=== PATIENT | female | born 1990 | race African-American/Black ===

== ENCOUNTER 2021-02-19 14:09 | Outpatient (CLI) | payer OTHER, SELFPAY ==
--- NOTE | ~2021-02-19 | US_ITS ---
EXAMINATION: US OB <= 14 weeks fetus EXAM DATE: 02/19/2021 14:43 INDICATION: Encounter for supervision of normal , dating. 1st trimester. TECHNIQUE: Pelvic obstetrical transabdominal sonogram was performed by a technologist. There are mu ltiple grayscale and Doppler images available for interpretation. There are no earlier studies of th is gestation for comparison. FINDINGS: Uterus measures 10.0 x 4.3 x 5.5 cm. There is intrauterine gestation sac. pole with heart rate confirmed at 124 beats per minute. The 9 mm crown-rump length corresponds to estimated g estational age by ultrasound of 7 weeks 0 days, estimated date of confinement 10/08/2021. Yolk sac i s identified. There is small heterogeneous hypoechoic region and subchorionic location measuring 1.0 x 0.8 x 1.8 cm mm, could be a small subchorionic hemorrhage. The ovaries are normal, right likely containing the c orpus luteal cyst. IMPRESSION: 1. Live intrauterine gestation, age by ultrasound 7 weeks 0 days with KANDI 10/08. 2. Possible small subchorionic hematoma. Reviewed, dictated and finalized at location G. IMPRESSION: 1. Live intrauterine gestation, age by ultrasound 7 weeks 0 days with KANDI 09/28 1. 2. Possible small subchorionic hematoma.
== END 2021-02-19 14:10 | disposition home or self-care (01) ==
PROVIDERS: PCP Family Medicine; Visit Provider Obstetrics & Gynecology
DX: Z34.90 Encounter for supervision of normal pregnancy, unspecified, unspecified trimester (principal); Z3A.00 Weeks of gestation of pregnancy not specified
CPT/HCPCS: 76801

== ENCOUNTER 2021-02-26 07:54 | Emergency (ER) | payer OTHER, SELFPAY ==
[2021-02-26 07:59] VITALS: BP 132/79; PULSE 67; RESP 19; TEMP 36.5; O2SAT 100
--- NOTE | 2021-02-26 08:11 | ED.GENADULT ---
HPI - General Adult General Chief complaint: Nausea/Vomiting/Diarrhea Stated complaint: N/V, 9 weeks Time Seen by Provider: 02/26/21 08:03 Source: RN notes reviewed History of Present Illness HPI narrative: Patient presents to emergency department from home for nausea vomiting. Patient states that symptoms began 2 days ago with numerous episodes of nausea vomiting unable to keep anything down patient states she is approximately [address] Reid. States she has a history of hyperemesis gravidarum with her 2 previous pregnancies states she tried taking Reglan at home with minimal relief that she is unable to keep it down she denies any fevers or chills chest pain shortness of breath. Denies having diarrhea. Does note upper abdominal cramping. States she has had an ultrasound in the office that shows a live IUP denies having any vaginal bleeding Related Data Home Medications Medication Instructions Recorded Confirmed No Home Medications 02/26/21 Allergies Allergy/AdvReac Type Severity Reaction Status Date / Time No Known Allergies Allergy Verified 02/26/21 08:07 Review of Systems Review of Systems: Narrative: Gen.: Denies fevers or chills ENT: Denies congestion Respiratory: Denies shortness of breath or cough CV: Denies chest pain or palpitations GI: See HPI reports Musculoskeletal: Denies back pain or muscle pain Neuro: Denies numbness, tingling, weakness or focal weakness Skin: Denies rash Except as documented, all other systems reviewed and negative [facility] Past Medical History Medical History (Updated 02/26/21 @ 10:39 by Marlon Barnes DO) Hyperemesis gravidarum Social History Social History (Updated 02/26/21 @ 08:12 by Marlon Barnes DO) Smoking status: Never smoker Gender identity (if verbalized by the patient): Female Exam Narrative: Exam Narrative: APPEARANCE: No acute distress, nontoxic, resting in bed EYES: EOMI HEENT: Normocephalic, atraumatic, OMM RESPIRATORY: No respiratory distress Clear to auscultation bilaterally with no rhonchi wheezing or rales. CARDIOVASCULAR: Regular rate and rhythm without murmurs rubs or gallops. ABDOMINAL: Soft, nontender, nondistended, no rebound or guarding MUSCULOSKELETAl: Moves all extremities. No clubbing, cyanosis or edema. NEURO: Awake and alert. Following commands, speech normal, no focal deficits SKIN:: Warm, dry. No rashes lesions or abrasions PSYCHIATRIC: Normal affect/mood, Course Course Emergency Course: Patient given 2 L of fluid in the ED states she is feeling much better able to eat and drink in ED with no emesis states she has Reglan at home Discussed with patient results of workup and diagnosis. Discussed need for follow-up with primary care, proper use of medication, and reasons to return to the emergency department. Patient understands and agrees to current treatment plan Vital Signs Vital signs: Vital Signs Temperature 97.7 F 02/26/21 07:59 Pulse Rate 67 02/26/21 07:59 Respiratory Rate 19 02/26/21 07:59 Blood Pressure 132/79 02/26/21 07:59 Pulse Oximetry 100 02/26/21 07:59 Temperature 97.7 F 02/26/21 07:59 Pulse Rate 64 02/26/21 09:20 Respiratory Rate 16 02/26/21 09:20 Blood Pressure 119/60 02/26/21 09:20 Pulse Oximetry 100 02/26/21 09:20 Medical Decision Making Vital Signs Vital Signs: Vital Signs Temperature 97.7 F 02/26/21 07:59 Pulse Rate 67 02/26/21 07:59 Respiratory Rate 19 02/26/21 07:59 Blood Pressure 132/79 02/26/21 07:59 Pulse Oximetry 100 02/26/21 07:59 Temperature 97.7 F 02/26/21 07:59 Pulse Rate 64 02/26/21 09:20 Respiratory Rate 16 02/26/21 09:20 Blood Pressure 119/60 02/26/21 09:20 Pulse Oximetry 100 02/26/21 09:20 Lab Data Result diagrams: 02/26/21 08:09 02/26/21 08:09 Labs: Lab Results 02/26/21 02/26/21 02/26/21 Range/Units 08:09 08:09 08:17
[2021-02-26 08:16] LABS: Basophils Percent Auto 0.2 % (0.2-1.2); Eosinophils Percent Auto 0.2 % (0-4.4); Hematocrit 37.7 % (37.0-47.0); Hemoglobin 12.1 g/dL (12.0-15.0); Immature Granulocyte Absolute 0.03 K/mm3 (0.00-0.031); Immature Granulocyte Percent A 0.5 % (0-0.5); Lymphocytes Absolute Auto 1.01 K/mm3 (0.9-3.2); Lymphocytes Percent Auto 18.2 % (18.3-44.2); Mean Corpuscular HGB Conc 32.1 g/dl (32-36); Mean Corpuscular Hemoglobin 28.8 pg (26-34); Mean Corpuscular Volume 89.8 fl (80-100); Monocytes Absolute Auto 0.4 K/mm3 (0.1-0.6); Monocytes Percent Auto 7.8 % (2.6-8.5); Neutrophils Absolute Auto 4.1 K/mm3 (1.3-6.7); Neutrophils Percent Auto 73.1 % (45.5-73.1); Platelet Count Result 225 k/mm3 (150-375); White Blood Count 5.5 K/mm3 (4.5-10.0)
[2021-02-26] MEDS: SODIUM CHLORIDE 0.9% IV 1,000 ML 999 ML IV CONT (08:20)
[2021-02-26] MEDS: FAMOTIDINE 20 MG/2 ML VIAL IV PUSH (08:21)
[2021-02-26] MEDS: PROMETHAZINE HCL 25 MG/ML AMPUL 12.5 MG IV PUSH (08:21)
[2021-02-26 08:31] LABS: Add Urine Microscopic? YES; Appearance Urine Cloudy (Clear); Bilirubin Urine Negative (Negative); Blood Urine Negative (Negative); Color Urine Amber (Yellow); Glucose Urine UA Negative (Negative); Ketones Urine 2+ mg/dL (Negative); Leukocyte Esterase Ur Negative LEU/UL (Negative); Mucus Urine Heavy /lpf; Nitrate Urine Negative (Negative); Protein Urine 2+ mg/dL (Negative); RBC Urine 0-2 /hpf (0-2); Squamous Epithelial Cell Urine Many /hpf (Few); WBC Urine 0-3 /hpf
[2021-02-26 08:33] LABS: Alanine Aminotransferase 9 U/L (4-35); Albumin Level 4.7 g/dL (3.5-5.1); Alkaline Phosphatase 65 U/L (38-126); Anion Gap 9 mmol/L (8-16); Aspartate Amino Transferase 16 U/L (14-36); Bilirubin,Total 0.6 mg/dL (0.2-1.3); Blood Urea Nitrogen 9 mg/dL (7-17); Calcium 9.4 mg/dL (8.4-10.2); Carbon Dioxide 25 mmol/L (22-30); Chloride 104 mmol/L (98-107); Estimated CRCL calculation 106 ml/min; Estimated Glomerular Filt Rate > 60; Glucose 94 mg/dL (65-105); Lipase 76 U/L (23-300); Potassium 3.3 mmol/L (3.4-5.0); Sodium 138 mmol/L (137-145)
[2021-02-26 09:20] VITALS: BP 119/60; PULSE 64; RESP 16; O2SAT 100
[2021-02-26] MEDS: LACTATED RINGERS 1,000 ML 999 ML IV CONT (09:20)
--- NOTE | 2021-02-26 10:14 | PC.NURSE ---
Gave pt crackers and water for PO challenge. Pt was able to keep it down without vomiting. Pt states she feels better at this time.
[2021-02-26] MEDS: POTASSIUM CHLORIDE 20 MEQ PACKET (FOR LIQUID) PO (10:47)
[2021-02-26 10:52] VITALS: BP 116/66; PULSE 66; RESP 16; O2SAT 100
== END 2021-02-26 10:55 | disposition home or self-care (01) ==
PROVIDERS: Emergency Provider Emergency Medicine; PCP Family Medicine
DX: O21.0 Mild hyperemesis gravidarum (principal); Z3A.09 9 weeks gestation of pregnancy
CPT/HCPCS: 36415; 80053; 81001; 81025; 83690; 85025; 96361; 96374; 96375; 99284; A9270; J2550; J7030; J7120

== ENCOUNTER 2021-03-22 18:23 | Observation (INO) | payer OTHER, SELFPAY ==
--- NOTE | ~2021-03-22 | XR_ITS ---
EXAMINATION: XR chest PICC line EXAM DATE: 03/24/2021 14:00 INDICATION: PICC placement shield abdomen. TECHNIQUE: Portable AP frontal chest x-ray was obtained. There is no prior study for comparison. FINDINGS: There is a left-sided PICC line with tip projecting just above the cavoatrial junction. The lungs are clear. There are no pleural effusions. The cardiomediastinal silhouette is within normal limits. There is no pneumothorax suspected. The bones and soft tissues are unremarkable. IMPRESSION: 1. No acute cardiopulmonary findings. 2. PICC line in position. Reviewed, dictated and finalized at location A.
[2021-03-22 18:35] VITALS: BP 118/73; PULSE 72; TEMP 36.8
[2021-03-22 18:58] VITALS: BMI 28.9
[2021-03-22] MEDS: METOCLOPRAMIDE HCL INJ 10 MG/2 ML VIAL IV PUSH (19:29)
[2021-03-22] MEDS: DEXTROSE 5%/0.9% SOD CHL 1,000 ML 999 ML IV CONT (19:31)
--- NOTE | 2021-03-22 19:33 | OBADM ---
This patient, Drake Verma, admitted to the OB room OB Post 116 for observation. Patient/family oriented to hospital policies and general routines including ID bracelet, bed and alarms, visiting hours, pain management, procedures, bathroom and other care routines, personal items, smoking policy, room service/diet, and visiting hours. Patient/Family are encouraged to report perceived risks to care and to ask questions if they do not understand what they are told or what they should do.
[2021-03-22] MEDS: ONDANSETRON INJ 4 MG/2 ML VIAL IV PUSH (19:43)
[2021-03-22] MEDS: FAMOTIDINE 20 MG/2 ML VIAL IV PUSH (19:59)
[2021-03-22] MEDS: DEXTROSE 5%/0.9% SOD CHL 1,000 ML 150 ML IV CONT ×2 (21:22→23:43)
[2021-03-22 23:46] VITALS: BP 105/48; PULSE 79
[2021-03-22 23:47] VITALS: TEMP 36.7
[2021-03-23] VITALS (7 sets, daily range): BP systolic 108–121; BP diastolic 56–73; PULSE 63–69; RESP 18; TEMP 36.9–37.1
[2021-03-23] MEDS: ONDANSETRON INJ 4 MG/2 ML VIAL IV PUSH ×3 (07:10→18:30)
[2021-03-23] MEDS: METOCLOPRAMIDE HCL INJ 10 MG/2 ML VIAL IV PUSH ×3 (09:37→21:31)
--- NOTE | 2021-03-23 09:40 | PC.NURSE ---
Called Dr. Reid with pt status. Informed that pt denied nausea, so encouraged to eat crackers to see if she tolerates them. Pt got nauseated with small amount of crackers. Instructed to not eat any more. Orders received to begin setting up home health for PICC line for meds and hydration.
--- NOTE | 2021-03-23 09:50 | PC.NURSE ---
Called office to inform them of additional information needed for home health. Office will fax requested information to home health.
[2021-03-23] MEDS: DEXTROSE 5%/0.9% SOD CHL 1,000 ML 150 ML IV CONT ×3 (10:02→19:52)
[2021-03-23] MEDS: FAMOTIDINE 20 MG/2 ML VIAL IV PUSH ×2 (10:02→22:01)
--- NOTE | 2021-03-23 12:53 | PC.NURSE ---
FHT's 160's per doppler.
--- NOTE | 2021-03-23 14:05 | PC.NURSE ---
Called Dr. Reid. Informed that home [facility] is waiting on approval for meds and will contact us when it is approved.
--- NOTE | 2021-03-23 18:34 | PC.NURSE ---
1830- pt given popsicle and ice chips per her request. pt states that she is feeling the best she has felt in a while.
--- NOTE | 2021-03-23 19:33 | PM.IMHP ---
H&P: HPI History of Present Illness Date/Time: 03/23/21 19:33 Chief Complaint: hyperemesis gravidarum Narrative: 30 year old at 11wks gestation w/ hx of severe hyperemesis gravidarum presents for CASSIE with nausea and vomiting. Has tried Zofran, scopolamine patch, metoclopramide and rectal suppository without relief. Review of Systems Review of Systems: All systems reviewed & are unremarkable except as noted in HPI and below Constitutional: Constitutional: Reports anorexia, Reports lethargy, Reports poor appetite and Reports weight loss Eyes: Eyes: Reports no additional eye complaints ENT: Reports system reviewed and no additional complaints, except as documented Cardiovascular: Cardiovascular: Reports no additional cardiovascular complaints Respiratory: Respiratory: Reports no additional respiratory complaints Gastrointestinal: Gastrointestinal: Reports abdominal pain, Reports dyspepsia, Reports heartburn, Reports nausea and Reports vomiting Genitourinary: Genitourinary: Reports no additional female genitourinary complaints Musculoskeletal: Musculoskeletal: Reports no additional musculoskeletal complaints Integumentary/Breasts: Skin/Breast: Reports system reviewed and no additional complaints, except as docu Neurologic: Reports system reviewed and no additional complaints, except as documented Psychiatric: Psychiatric: Reports no additional psychiatric complaints PMFSH Past Medical History Medical History (Updated 03/24/21 @ 19:39 by Carrillo Reid MD) Depressive disorder [place] (generalized anxiety disorder) Hyperemesis gravidarum MS (multiple sclerosis) Recurrent UTI Subchorionic hematoma in first trimester Supervision of normal IUP (intrauterine ) in multigravida Surgical History Surgical History (Updated 03/24/21 @ 19:41 by Carrillo Reid MD) Delivery by section 02/13/20091407 lbs.14 oz.MCesareanFull Term [facility] Delivery by section 08/29/2018137.35 lbs.8 oz.M[facility] Family History Family History (Updated 03/24/21 @ 19:42 by Carrillo Reid MD) Other Cancer Diabetes mellitus Heart disease Hypertension Social History Social History (Updated 03/24/21 @ 19:42 by Carrillo Reid MD) Smoking status: Never smoker Alcohol intake: never Substance use type: marijuana Living arrangements: with family Occupation/Education: occupation 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 Gender identity (if verbalized by the patient): Female Sexual Orientation (if Verbalized by the Patient): Straight or Heterosexual Spiritual care concerns: No Agree to blood products: Yes Meds Home Medications and Allergies Home Medications Medication Instructions Recorded Confirmed Type metoclopramide HCl 10 mg PO Q6H 03/22/21 03/22/21 History ondansetron 4 mg PO Q4H 03/22/21 03/22/21 History scopolamine base 1 mg TRANSDERMAL Q3-4D 03/22/21 03/22/21 History Allergies Allergy/AdvReac Type Severity Reaction Status Date / Time No Known Allergies Allergy Verified 02/26/21 08:07 Vital Signs Vital Signs - 24 hr 03/24/21 03:34 03/24/21 03:35 03/24/21 07:27 Temperature 98.4 F 98.5 F Pulse Rate 83 83 Respiratory Rate 16 Blood Pressure 116/67 116/67 Pulse Oximetry 100 03/24/21 07:28 03/24/21 12:35 03/24/21 12:36 Temperature 98.0 F Pulse Rate 76 69 Respiratory Rate Blood Pressure 120/66 114/61 Pulse Oximetry 03/24/21 15:55 03/24/21 15:56 03/24/21 18:33 Temperature 98.1 F 98.5 F Pulse Rate 74 80 Respiratory Rate 18 Blood Pressure 118/65 123/65 Pulse Oximetry 99 03/24/21 18:34 Temperature Pulse Rate 80 Respiratory Rate Blood Pressure 123/65 Pulse Oximetry 98 Exam Const: General: cooperative, healthy appearing, comfortable, no acute distress, well developed, alert and awake Nutrit
--- NOTE | 2021-03-23 19:47 | WPDHPUPDATE1 ---
History and Physical Update Update Date/Time: 03/23/21 19:47 History and Physical has been reviewed, including an updated exam of the patient. There are NO changes in the patient's condition. Risks, benefits, and alternatives have been discussed and questions answered. Patient agrees to proceed with procedure. 30 year old at 11wks gestation w/ hx of severe hyperemesis gravidarum presents for CASSIE with nausea and vomiting. Has tried Zofran, scopolamine patch, metoclopramide and rectal supposory without relief.
[2021-03-24] VITALS (10 sets, daily range): BP systolic 114–123; BP diastolic 61–67; PULSE 69–83; RESP 16–18; TEMP 36.7–36.9; O2SAT 98–100
[2021-03-24] MEDS: ONDANSETRON INJ 4 MG/2 ML VIAL IV PUSH ×4 (00:31→18:30)
[2021-03-24] MEDS: DEXTROSE 5%/0.9% SOD CHL 1,000 ML 150 ML IV CONT ×3 (03:31→19:15)
[2021-03-24] MEDS: METOCLOPRAMIDE HCL INJ 10 MG/2 ML VIAL IV PUSH ×4 (03:31→21:30)
--- NOTE | 2021-03-24 03:40 | PC.NURSE ---
pt able to keep jello down. pt states that she feels better.
[2021-03-24] MEDS: FAMOTIDINE 20 MG/2 ML VIAL IV PUSH ×2 (09:31→22:04)
[2021-03-24] MEDS: LIDOCAINE HCL 1% PF INJ 5 ML VIAL INFILTRATE (13:25)
--- NOTE | 2021-03-24 15:05 | PC.NURSE ---
Discussed plan of care with home health.
--- NOTE | 2021-03-24 15:15 | PC.NURSE ---
Called Dr. Reid with pt status. Home health arranged with [facility]. Able to keep down a banana and PO fluids. Will come to see pt after office hours today.
--- NOTE | 2021-03-24 17:55 | PC.NURSE ---
Pt ate mashed potatoes without nausea or vomiting.
--- NOTE | 2021-03-24 19:45 | PM.OBTRLD ---
OB - Triage/Final Diagnosis Visit Information Date of evaluation: 03/24/21 Comments/Additional reasons for admission: I have assessed the risk for this patient, Drake Verma, and determined that she would benefit from observation care. Evaluation Vital signs: Vital Signs - 24 hr 03/24/21 03:34 03/24/21 03:35 03/24/21 07:27 Temperature 98.4 F 98.5 F Pulse Rate 83 83 Respiratory Rate 16 Blood Pressure 116/67 116/67 Pulse Oximetry 100 03/24/21 07:28 03/24/21 12:35 03/24/21 12:36 Temperature 98.0 F Pulse Rate 76 69 Respiratory Rate Blood Pressure 120/66 114/61 Pulse Oximetry 03/24/21 15:55 03/24/21 15:56 03/24/21 18:33 Temperature 98.1 F 98.5 F Pulse Rate 74 80 Respiratory Rate 18 Blood Pressure 118/65 123/65 Pulse Oximetry 99 03/24/21 18:34 Temperature Pulse Rate 80 Respiratory Rate Blood Pressure 123/65 Pulse Oximetry 98 Final Diagnosis (1) Hyperemesis gravidarum: Code(s): O21.0 - Mild hyperemesis gravidarum Status: Acute (2) MS (multiple sclerosis): Code(s): G35 - Multiple sclerosis Status: Acute (3) Subchorionic hematoma in first trimester: Code(s): O41.8X10 - Other specified disorders of amniotic fluid and membranes, first trimester, not applicable or unspecified; O46.8X1 - Other antepartum hemorrhage, first trimester Status: Acute
--- NOTE | 2021-03-24 19:48 | PM.OBPNVD ---
OB - PN: Subj Subjective Date/time seen: 03/24/21 19:48 30 year old at 11wks gestation w/ hx of severe hyperemesis gravidarum presents for CASSIE with nausea and vomiting. Has tried Zofran, scopolamine patch, metoclopramide and rectal suppository without relief. now with PICC LINE AND HOME HEALTH SETUP OB - PN: Obj Data Imaging Radiologist's impression: Impressions Chest X-Ray 03/24/21 14:08 IMPRESSION: 1. No acute cardiopulmonary findings. 2. PICC line in position. OB - PN A/P Assessment and Plan (1) Hyperemesis gravidarum: Code(s): O21.0 - Mild hyperemesis gravidarum Status: Acute (2) MS (multiple sclerosis): Code(s): G35 - Multiple sclerosis Status: Acute (3) Supervision of normal IUP (intrauterine ) in multigravida: Code(s): Z34.80 - Encounter for supervision of other normal , unspecified trimester Status: Acute Time Spent With Patient Time: Total time spent is greater than 50% in coordination of care (as documented) at patient's floor/unit and/or counseling patient: Review of Systems Review of Systems: All systems reviewed & are unremarkable except as noted in HPI and below Constitutional: Constitutional: Reports no additional constitutional complaints Eyes: Eyes: Reports no additional eye complaints ENT: Reports system reviewed and no additional complaints, except as documented Cardiovascular: Cardiovascular: Reports no additional cardiovascular complaints Respiratory: Respiratory: Reports no additional respiratory complaints Gastrointestinal: Gastrointestinal: Reports no additional gastrointestinal complaints Genitourinary: Genitourinary: Reports no additional female genitourinary complaints Musculoskeletal: Musculoskeletal: Reports no additional musculoskeletal complaints Integumentary/Breasts: Skin/Breast: Reports system reviewed and no additional complaints, except as docu Neurologic: Reports system reviewed and no additional complaints, except as documented Psychiatric: Psychiatric: Reports no additional psychiatric complaints Endocrine: Endocrine: Reports no additional endocrine complaints Hematologic/Lymphatic: Hematologic/Lymphatic: Reports no additional hematologic/lymphatic complaints Allergic/Immunologic: Allergic/Immunologic: Reports no additional allergic/immunologic complaints Exam Const: General: cooperative, healthy appearing, comfortable, no acute distress, well developed, alert, awake and Physically active Nutritional Appearance: average body habitus Orientation/consciousness: patient oriented x3 Limitations: no limitations HENMT: Head: normal to inspection Eyes: General: appearance normal, both eyes and all related structures Neck: Neck: normal visual inspection and full ROM Chest: Chest palpation & inspection: normal inspection of the chest Resp: Effort & Inspection: normal respiratory effort Cardio: Rate: regular rate Rhythm: regular rhythm GI: Inspection: normal to inspection : External Female Exam: normal external appearance Back/Spine/Pelvis: Back: no CVA tenderness Skin: General skin exam: normal color Neuro: General: patient oriented x3, gait normal, tone normal and moves all extremities Extrem: General: normal to inspection and full ROM Psych: Appearance: grossly normal Mental Status: mental status grossly normal
--- NOTE | 2021-03-24 20:04 | PC.NURSE ---
1956- Dr. Reid in L&D unit. 1957- Dr. Reid at bedside.
[2021-03-24] MEDS: CENTRAL LINE FLUSH 10 ML IV PUSH (21:43)
[2021-03-25] MEDS: ONDANSETRON INJ 4 MG/2 ML VIAL IV PUSH ×2 (00:30→06:36)
[2021-03-25] MEDS: DEXTROSE 5%/0.9% SOD CHL 1,000 ML 150 ML IV CONT (01:55)
[2021-03-25] MEDS: METOCLOPRAMIDE HCL INJ 10 MG/2 ML VIAL IV PUSH (04:12)
[2021-03-25] MEDS: CENTRAL LINE FLUSH 10 ML IV PUSH (06:39)
[2021-03-25 06:44] VITALS: BP 130/82; PULSE 148; PULSE 72; RESP 16; TEMP 36.7; O2SAT 100
== END 2021-03-25 07:05 | disposition home health service (06) ==
PROVIDERS: Admitting Provider Obstetrics & Gynecology; PCP Family Medicine; Visit Provider Obstetrics & Gynecology
DX: O21.0 Mild hyperemesis gravidarum (principal); G35 Multiple sclerosis; Z3A.11 11 weeks gestation of pregnancy
CPT/HCPCS: 36569; 96361; 96374; 96375; 96376; C1751; G0378; G0379; J2405; J2765; J7042

== ENCOUNTER 2021-04-01 12:53 | Emergency (ER) | payer OTHER, SELFPAY ==
--- NOTE | ~2021-04-01 | XR_ITS ---
EXAMINATION: XR chest 1V portable EXAM DATE: 04/01/2021 13:28 INDICATION: Confirm existing PICC line placement . TECHNIQUE: Portable AP frontal chest x-ray was obtained. There is no prior study for comparison. FINDINGS: There is a left-sided PICC line with tip projecting over the cavoatrial junction. The lungs are clear. There are no pleural effusions. The cardiomediastinal silhouette is within normal limit s. There is no pneumothorax suspected. The bones and soft tissues are unremarkable. IMPRESSION: PICC line in position. No acute cardiopulmonary findings. Reviewed, dictated and finalized at location B.
[2021-04-01 13:06] VITALS: BP 118/66; PULSE 78; RESP 18; TEMP 36.2; O2SAT 100
--- NOTE | 2021-04-01 13:06 | ED.GENADULT ---
HPI - General Adult General Chief complaint: Abdominal Pain Stated complaint: multiple complaints Time Seen by Provider: 04/01/21 12:56 History of Present Illness HPI narrative: 30 yo female at 13 weeks gestation w/ h/o hyperemesis presents to the Ed for abdominal pain. She reports that she has not had a bowel movement in 2 weeks. She now has diffuse cramping abdominal pain. She also reports that she has nausea and vomiting, but this is no worse than baseline. She has a port and she gets IV fluids and antiemetics at home. No vaginal bleeding discharge, dysuria, hematuria. Related Data Home Medications Medication Instructions Recorded Confirmed metoclopramide HCl 10 mg PO Q6H 03/22/21 03/22/21 ondansetron 4 mg PO Q4H 03/22/21 03/22/21 scopolamine base 1 mg TRANSDERMAL Q3-4D 03/22/21 03/22/21 Allergies Allergy/AdvReac Type Severity Reaction Status Date / Time No Known Allergies Allergy Verified 04/01/21 13:12 Review of Systems Review of Systems: All systems reviewed & are unremarkable except as noted in HPI and below Constitutional: Constitutional: Denies chills and Denies fever(s) Cardiovascular: Cardiovascular: Denies chest pain Respiratory: Respiratory: Denies dyspnea Gastrointestinal: Gastrointestinal: Reports as per HPI Genitourinary: Genitourinary: Reports as per HPI Musculoskeletal: Musculoskeletal: Reports no additional musculoskeletal complaints Neurologic: Reports system reviewed and no additional complaints, except as documented [facility] Past Medical History Medical History Depressive disorder [place] (generalized anxiety disorder) Hyperemesis gravidarum MS (multiple sclerosis) Recurrent UTI Subchorionic hematoma in first trimester Supervision of normal IUP (intrauterine ) in multigravida Surgical History Surgical History Delivery by section 02/13/20091407 lbs.14 oz.MCesareanFull Term [facility] Delivery by section 08/29/2018137.35 lbs.8 oz.MRepeat CesareanFull Term [facility] Family History Family History Other Cancer Diabetes mellitus Heart disease Hypertension Social History Social History Smoking status: Never smoker Alcohol intake: never Substance use type: marijuana 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 Gender identity (if verbalized by the patient): Female Spiritual care concerns: No Agree to blood products: Yes Exam Const: General: healthy appearing, no acute distress and alert Orientation/consciousness: patient oriented x3 HENMT: Head: normal to inspection Neck: Neck: normal visual inspection Resp: Effort & Inspection: normal respiratory effort Auscultation: clear to auscultation bilaterally, no rales, no rhonchi and no wheezes Cardio: Jugular venous distension: no JVD Rate: regular rate Rhythm: regular rhythm Heart sounds: no murmurs GI: GI Palp: Yes Soft to palpation and No Tenderness to palpation present (GI) Auscultation: normal bowel sounds Other: Gravid Skin: General skin exam: normal color Neuro: General: patient oriented x3 and moves all extremities Speech: normal speech Extrem: General: no edema Psych: Appearance: well kempt Affect: normal affect Course Vital Signs Vital signs: Vital Signs Temperature 36.2 C L 04/01/21 13:06 Pulse Rate 78 04/01/21 13:06 Respiratory Rate 18 04/01/21 13:06 Blood Pressure 118/66 04/01/21 13:06 Pulse Oximetry 100 04/01/21 13:06 Temperature 36.2 C L 04/01/21 13:06 Pulse Rate 78 04/01/21 13:06 Respiratory Rate 18 04/01/21 13:06 Blood Pressure 118/66 04/01/21 13:06 Pulse Oximetry 100 04/01/21 13:06 Medical Decision
[2021-04-01 13:33] LABS: Add Urine Microscopic? YES; Appearance Urine Cloudy (Clear); Bacteria Urine Trace /hpf; Bilirubin Urine Negative (Negative); Blood Urine 1+ (Negative); Color Urine Yellow (Yellow); Glucose Urine UA Negative (Negative); Ketones Urine Negative (Negative); Leukocyte Esterase Ur 2+ LEU/UL (Negative); Mucus Urine Rare /lpf; Nitrate Urine Negative (Negative); Protein Urine 2+ mg/dL (Negative); Specific Grav Ur 1.014 (1.001-1.035); Squamous Epithelial Cell Urine Occasional /hpf (Few); WBC Clumps Urine Present /HPF; WBC Urine >75 /hpf
[2021-04-01] MEDS: MAGNESIUM CITRATE 300 ML BTL PO (13:52)
[2021-04-01 14:10] LABS: Basophils Percent Auto 0.1 % (0.2-1.2); Eosinophils Percent Auto 0.1 % (0-4.4); Hematocrit 31.8 % (37.0-47.0); Hemoglobin 10.6 g/dL (12.0-15.0); Immature Granulocyte Absolute 0.03 K/mm3 (0.00-0.031); Immature Granulocyte Percent A 0.4 % (0-0.5); Lymphocytes Absolute Auto 0.61 K/mm3 (0.9-3.2); Lymphocytes Percent Auto 7.4 % (18.3-44.2); Mean Corpuscular HGB Conc 33.3 g/dl (32-36); Mean Corpuscular Hemoglobin 28.6 pg (26-34); Mean Corpuscular Volume 85.9 fl (80-100); Mean Platelet Volume 12.3 fl (7.4-10.4); Monocytes Absolute Auto 0.5 K/mm3 (0.1-0.6); Monocytes Percent Auto 5.9 % (2.6-8.5); Neutrophils Absolute Auto 7.1 K/mm3 (1.3-6.7); Neutrophils Percent Auto 86.1 % (45.5-73.1); Platelet Count Result 156 k/mm3 (150-375); Red Cell Distribution Width 12.4 % (11.5-14.5); White Blood Count 8.2 K/mm3 (4.5-10.0)
[2021-04-01 14:24] LABS: Alanine Aminotransferase 10 U/L (4-35); Albumin Level 3.9 g/dL (3.5-5.1); Alkaline Phosphatase 64 U/L (38-126); Anion Gap 7 mmol/L (8-16); Aspartate Amino Transferase 18 U/L (14-36); Bilirubin,Total 0.7 mg/dL (0.2-1.3); Blood Urea Nitrogen 5 mg/dL (7-17); Calcium 9.8 mg/dL (8.4-10.2); Carbon Dioxide 21 mmol/L (22-30); Chloride 106 mmol/L (98-107); Estimated CRCL calculation 141 ml/min; Estimated Glomerular Filt Rate > 60; Glucose 91 mg/dL (65-105); Lipase 80 U/L (23-300); Sodium 134 mmol/L (137-145)
[2021-04-01 14:29] LABS: Potassium 3.5 mmol/L (3.4-5.0)
[2021-04-01] MEDS: ONDANSETRON INJ 4 MG/2 ML VIAL IV PUSH (14:30)
[2021-04-01] MEDS: NITROFURANTOIN MONOHYD MACROCR 100 MG CAP PO (14:39)
[2021-04-01] MEDS: FAMOTIDINE 20 MG TABLET (14:47)
[2021-04-01] MEDS: HEPARIN SOD FLUSH 500 UNITS/5 ML SYRINGE (15:25)
--- NOTE | 2021-04-01 15:25 | PC.NURSE ---
PICC line was flushed with Heparin by this RN
== END 2021-04-01 15:26 | disposition home or self-care (01) ==
PROVIDERS: Emergency Provider Emergency Medicine; PCP Family Medicine
DX: O21.0 Mild hyperemesis gravidarum (principal); O99.611 Diseases of the digestive system complicating pregnancy, first trimester; K59.00 Constipation, unspecified; O99.351 Diseases of the nervous system complicating pregnancy, first trimester; G35 Multiple sclerosis; Z3A.13 13 weeks gestation of pregnancy; Z87.440 Personal history of urinary (tract) infections
CPT/HCPCS: 36415; 71045; 80053; 81001; 81025; 83690; 85025; 87077; 87086; 87088; 87186; 96374; 96375; 99284; A9270; J2405

== ENCOUNTER 2021-04-14 12:23 | Outpatient (CLI) | payer OTHER, SELFPAY ==
--- NOTE | ~2021-04-14 | US_ITS ---
EXAMINATION: US OB <= 14 weeks fetus DATE: 04/14/2021 12:52 INDICATION: Routine care during second trimester TECHNIQUE: Real-time pelvic transabdominal and transvaginal ultrasound was performed. COMPARISON: 02/19/2021 FINDINGS: There is a single living fetus in transverse lie. The placenta is posterior. heart mo tion is identified measuring 150 beats per minute (bpm) by M-mode Doppler. The amniotic fluid index i s subjectively normal. The following biometric data were obtained: Biparietal diameter (BPD): 2.7 cm; head circumference (HC): 105 cm; abdominal circumference (AC): 9.5 cm; femur length (FL): 1.6 cm. These measurements are concordant. Estimated weight is 119 g +/- 17 g, which correlates with the 76th percentile when 10/08/2021 i s used as estimated date of delivery. As single measurements, these parameters are each equal to the following estimated gestational ages w ith ranges of +/- 2 standard deviations: BPD: 15 weeks 0 days +/- 1 weeks 1 days. HC: 15 weeks 0 days +/- 1 weeks 1 days. AC: 15 weeks 4 days +/- 1 weeks 5 days. FL: 15 weeks 0 days +/- 1 weeks 3 days. estimated gestational age based solely on measurements from this exam is 15 weeks 1 days +/- 1 weeks 0 days. IMPRESSION: 1. Live intrauterine with an estimated gestational age of 15 weeks and 1 day(s) (+/-) 7 day (s) and an estimated delivery date of 10/05/2021. 2. Estimated weight is 119 g +/- 17 g, which correlates with the 76th percentile when is used as estimated date of delivery. Reviewed, dictated and finalized at location A. IMPRESSION: 1. Live intrauterine with an estimated gestational age of 15 weeks an d 1 day(s) (+/-) 7 day(s) and an estimated delivery date of 10/05/2021. 2. Estimated weight is 119 g +/- 17 g, which correlates with the 76th per centile when 10/08/2021 is used as estimated date of delivery.
== END 2021-04-14 12:24 | disposition home or self-care (01) ==
PROVIDERS: PCP Family Medicine; Visit Provider Obstetrics & Gynecology
DX: Z34.92 Encounter for supervision of normal pregnancy, unspecified, second trimester (principal); Z3A.15 15 weeks gestation of pregnancy
CPT/HCPCS: 76801

== ENCOUNTER 2021-04-18 16:42 | Observation (INO) | payer OTHER, SELFPAY ==
--- NOTE | 2021-04-18 17:05 | PC.NURSE ---
Called Dr. Armenta with pt status. Informed of nausea and vomiting today. PICC line removed on Tuesday. Orders received.
[2021-04-18 17:28] VITALS: BMI 30.5
[2021-04-18] MEDS: DEXTROSE 5%/LACTATED RINGERS 1,000 ML 150 ML IV CONT (17:43)
[2021-04-18] MEDS: METOCLOPRAMIDE HCL INJ 10 MG/2 ML VIAL IV PUSH (17:44)
[2021-04-18 17:46] VITALS: TEMP 36.6
[2021-04-18 17:47] VITALS: BP 114/74; PULSE 80
[2021-04-18 18:15] LABS: Add Urine Microscopic? YES; Appearance Urine Cloudy (Clear); Bacteria Urine Trace /hpf; Bilirubin Urine Negative (Negative); Blood Urine Negative (Negative); Color Urine Amber (Yellow); Glucose Urine UA Negative (Negative); Ketones Urine 2+ mg/dL (Negative); Leukocyte Esterase Ur 2+ LEU/UL (NEGATIVE); Mucus Urine Moderate /lpf; Nitrate Urine Negative (Negative); Protein Urine 1+ mg/dL (Negative); RBC Urine 0-2 /hpf (0-2); Specific Grav Ur 1.027 (1.001-1.035); Squamous Epithelial Cell Urine Many /hpf (Few); Transitional Epi Cells Urine Rare /hpf (None Seen); WBC Urine 0-3 /hpf (0-3)
[2021-04-18 19:39] VITALS: BP 110/51; PULSE 59; RESP 18; TEMP 37.2
[2021-04-18] MEDS: ONDANSETRON INJ 4 MG/2 ML VIAL IV PUSH (20:41)
[2021-04-18] MEDS: FAMOTIDINE 20 MG/2 ML VIAL IV PUSH (20:41)
--- NOTE | 2021-04-22 08:23 | PM.OBTRLD ---
OB - Triage/Final Diagnosis Visit Information Reason for evaluation: threatened labor Comments/Additional reasons for admission: I have assessed the risk for this patient, Drake Verma, and determined that she would benefit from observation care. Evaluation Laboratory results: Laboratory Tests 04/18/21 18:00 Urine Color Jocelyn Urine Appearance Cloudy H Urine pH 6.0 Ur Specific [place] 1.027 Urine Protein 1+ H Urine Glucose (UA) Negative Urine Ketones 2+ H Ur Blood (Man) Negative Urine Nitrate Negative Urine Bilirubin Negative Urine Urobilinogen 4.0 H Ur Leukocyte Esterase 2+ H Urine RBC 0-2 Urine WBC 0-3 Ur Squamous Epith Cells Many H Ur Transition Epith Cell Rare Urine Bacteria Trace Urine Mucus Moderate H
== END 2021-04-18 21:47 | disposition home or self-care (01) ==
PROVIDERS: Admitting Provider Obstetrics & Gynecology; PCP Family Medicine; Visit Provider Obstetrics & Gynecology
DX: O47.03 False labor before 37 completed weeks of gestation, third trimester (principal); Z3A.15 15 weeks gestation of pregnancy
CPT/HCPCS: 81001; 87086; 87088; 96361; 96374; 96375; G0378; G0379; J2405; J2765; J7121

== ENCOUNTER 2021-04-23 10:08 | Outpatient (RCR) | payer OTHER, SELFPAY ==
--- NOTE | 2021-04-23 11:01 | PC.NURSE ---
04/23/21 1010 Patient here A & O x3, ambulatory with steady gait to treatment room. Discussion with patient on status of N/V since picc line removal on 04/17/21. Patient states that she has not had any further vomiting since 04/18/21. She is currently still having some nausea, but has been eating and drinking without vomiting. 1015 Call placed to Diana at Dr. Reid's office. Diana was informed of current N/V situation. At this time, per Diana at Dr. Reid's office, we will hold off on picc line insertion. If patient starts having vomiting again, may need to insert picc line at that time. Patient is agreeable with plan. Patient discharged ambulatory without questions.
== END 2021-07-22 23:59 | disposition home or self-care (01) ==
LOC: ANHVASCINF 10:08
PROVIDERS: PCP Family Medicine; Visit Provider Obstetrics & Gynecology
DX: Z45.2 Encounter for adjustment and management of vascular access device (principal); O21.1 Hyperemesis gravidarum with metabolic disturbance; Z3A.00 Weeks of gestation of pregnancy not specified
CPT/HCPCS: 99199

== ENCOUNTER 2021-04-28 14:58 | Observation (INO) | payer OTHER, SELFPAY ==
[2021-04-28] MEDS: ONDANSETRON INJ 4 MG/2 ML VIAL IV PUSH ×2 (15:00→21:25)
[2021-04-28] MEDS: DEXTROSE 5%/LACTATED RINGERS 1,000 ML 999 ML IV CONT (15:00)
[2021-04-28 15:22] VITALS: BP 121/59; PULSE 55
[2021-04-28] MEDS: DEXTROSE 5%/LACTATED RINGERS 1,000 ML 200 ML IV CONT ×2 (16:23→21:30)
[2021-04-28] MEDS: FAMOTIDINE 20 MG/2 ML VIAL (16:29)
[2021-04-28 16:30] VITALS: BMI 30.4
[2021-04-28 17:36] VITALS: BP 132/72; PULSE 56
[2021-04-28] MEDS: METOCLOPRAMIDE HCL INJ 10 MG/2 ML VIAL IV PUSH (17:51)
--- NOTE | 2021-04-28 19:15 | OBADM ---
This patient, Drake Verma, admitted to the OB room OB Post 112 for observation. Patient/family oriented to hospital policies and general routines including ID bracelet, bed and alarms, visiting hours, pain management, procedures, bathroom and other care routines, personal items, smoking policy, room service/diet, and visiting hours. Patient/Family are encouraged to report perceived risks to care and to ask questions if they do not understand what they are told or what they should do.
[2021-04-28 21:24] VITALS: TEMP 37.2
[2021-04-28 21:25] VITALS: BP 131/74; PULSE 63
[2021-04-28] MEDS: FAMOTIDINE 20 MG/2 ML VIAL IV PUSH (21:25)
[2021-04-28 22:50] VITALS: TEMP 37.1
[2021-04-29] MEDS: METOCLOPRAMIDE HCL INJ 10 MG/2 ML VIAL IV PUSH ×2 (00:04→05:48)
--- NOTE | 2021-04-29 00:08 | PC.NURSE ---
Doppler FHT's 150's
[2021-04-29] MEDS: ONDANSETRON INJ 4 MG/2 ML VIAL IV PUSH ×2 (03:04→09:54)
[2021-04-29] MEDS: DEXTROSE 5%/LACTATED RINGERS 1,000 ML 200 ML IV CONT (03:07)
[2021-04-29 03:10] VITALS: TEMP 37
[2021-04-29] MEDS: FAMOTIDINE 20 MG/2 ML VIAL IV PUSH (09:54)
[2021-04-29 09:58] VITALS: BP 113/62; PULSE 64; TEMP 36.8
--- NOTE | 2021-04-29 10:05 | PC.NURSE ---
FHR doppled at 150.
--- NOTE | 2021-04-30 19:43 | PM.OBTRLD ---
OB - Triage/Final Diagnosis Visit Information Comments/Additional reasons for admission: I have assessed the risk for this patient, Drake Verma, and determined that she would benefit from observation care. Final Diagnosis (1) Hyperemesis gravidarum: Code(s): O21.0 - Mild hyperemesis gravidarum Status: Acute (2) Dehydration during : Code(s): O26.899 - Other specified related conditions, unspecified trimester; E86.0 - Dehydration Status: Acute
== END 2021-04-29 10:28 | disposition home or self-care (01) ==
PROVIDERS: Admitting Provider Obstetrics & Gynecology; PCP Family Medicine; Visit Provider Obstetrics & Gynecology
DX: O21.1 Hyperemesis gravidarum with metabolic disturbance (principal); Z3A.16 16 weeks gestation of pregnancy
CPT/HCPCS: 96361; 96374; 96375; 96376; G0378; G0379; J2405; J2765; J7121

== ENCOUNTER 2021-07-14 11:03 | Outpatient (CLI) | payer OTHER, SELFPAY ==
--- NOTE | ~2021-07-14 | US_ITS ---
EXAMINATION: US OB follow up DATE: 07/14/2021 11:51 INDICATION: Supervision of normal at the transition from the 2nd-3rd trimester TECHNIQUE: Real-time ultrasound of the pelvis was performed. The interpreting radiologist was not pre sent for the study. COMPARISON: 04/14/2021 FINDINGS: There is a single living fetus in breech presentation. The placenta is posterior. heart rate i s 150 beats per minute (bpm). The amniotic fluid index is 20.3 cm, which is normal (5th%-95%: 9.5-22 .6 cm at 27 weeks estimated gestational age). The following biometric data were obtained: BPD: 7.1 cm -> 28 weeks 3 days Head circumference: 27.0 cm -> 29 weeks 3 days Abdominal circumference: 24.1 cm -> 28 weeks 3 days Femur length: 5.4 cm -> 28 weeks 5 days These measurements are concordant. Head circumference to abdominal circumference ratio: 1.12 (normal range 1.00-1.21). Estimated weight: 1254 g (+/-) 188 g or 2 lbs. 12 oz. (+/-) 7 oz. IMPRESSION: 1. Single living fetus in breech presentation with heart rate of 150 bpm. 2. Normal amniotic fluid index of 20.3 cm. 3. Estimated weight is 73rd percentile by Hadlock criteria when 10/08/2021 is used as the estim ated date of delivery (KANDI). Please correlate with clinical information or earlier ultrasounds for mo st accurate KANDI. Reviewed, dictated and finalized at location A. IMPRESSION: 1. Single living fetus in breech presentation with heart rate of 150 bpm. 2. Normal amniotic fluid index of 20.3 cm. 3. Estimated weight is 73rd percentile by Hadlock criteria when 1 is used as the estimated date of delivery (KANDI). Please correlate with clinic al information or earlier ultrasounds for most accurate KANDI.
== END 2021-07-14 11:04 | disposition home or self-care (01) ==
PROVIDERS: PCP Family Medicine; Visit Provider Obstetrics & Gynecology
DX: Z34.92 Encounter for supervision of normal pregnancy, unspecified, second trimester (principal); Z3A.28 28 weeks gestation of pregnancy
CPT/HCPCS: 76816

== ENCOUNTER 2021-09-08 11:02 | Outpatient (RCR) | payer OTHER, SELFPAY ==
[2021-08-07 12:45] VITALS: BP 121/72; PULSE 85
[2021-09-03 11:57] VITALS: BP 119/75; PULSE 81
--- NOTE | ~2021-09-08 | US_ITS ---
EXAMINATION: US OB BPP wo non-stress DATE: 09/03/2021 11:54 INDICATION: Multiple sclerosis. Third trimester . TECHNIQUE: Real-time pelvic ultrasound was performed. The interpreting radiologist was not present fo r the study. COMPARISON: None. FINDINGS: There is a single living fetus in vertex presentation. The placenta is posterior. heart rate i s 136 beats per minute (bpm). Amniotic fluid volume is subjectively normal. Biophysical profile performed by the technologist: breathing (30 sec sustained breathing in 30 minutes): 2 out of 2 movement (3 gross body movements in 30 minutes): 2 out of 2 tone (one episode of ioiwyep-reojzafri-erdbqba limb movement): 2 out of 2 Amniotic fluid pocket (2 cm): 2 out of 2 Total score: 8 out of 8 IMPRESSION: 1. Single living fetus in vertex presentation with heart rate of 136 bpm. 2. Biophysical profile 8 out of 8. Reviewed, dictated and finalized at location B.
--- NOTE | ~2021-09-08 | US_ITS ---
EXAMINATION: US OB BPP wo non-stress EXAM DATE: 08/07/2021 12:52 INDICATION: Biophysical profile score. 3rd trimester. TECHNIQUE: Pelvic obstetrical transabdominal sonogram was performed by a technologist. There are mu ltiple grayscale and Doppler images available for interpretation. Comparison is made to prior examina tion from 07/14/2021. FINDINGS: There is a single fetus identified in vertex presentation with a heart rate of 144 beats pe r minute. The placenta is located in the posterior right position. There is no sonographic evidence of retroplacental hemorrhage identified. There is subjectively expected amount of amniotic fluid. BIOPHYSICAL PROFILE (performed by the technologist) breathing (30 sec sustained breathing in 30 minutes): 2 out of 2 movement (3 gross body movements in 30 minutes): 2 out of 2 tone (one episode of krhmhfv-oafgjgmnd-fallbwz limb movement): 2 out of 2 Amniotic fluid pocket (2 cm): 2 out of 2 Total score: 8 out of 8 IMPRESSION: 1. Single fetus with heart rate of 144 bpm. 2. Normal biophysical profile score of 8 out of 8. Reviewed, dictated and finalized at location A.
[2021-09-08 12:26] VITALS: BP 126/71
== END 2021-10-12 10:32 | disposition home or self-care (01) ==
LOC: ANHOBOP 11:02
PROVIDERS: PCP Family Medicine; Visit Provider Obstetrics & Gynecology
DX: O99.353 Diseases of the nervous system complicating pregnancy, third trimester (principal); G35 Multiple sclerosis; Z3A.31 31 weeks gestation of pregnancy; Z3A.35 35 weeks gestation of pregnancy
CPT/HCPCS: 59025; 76819

== ENCOUNTER 2021-09-22 09:35 | Outpatient (RCR) | payer OTHER, SELFPAY ==
[2021-09-15 10:15] VITALS: BP 123/84; PULSE 90
[2021-09-15 10:16] VITALS: BP 124/87; PULSE 105
[2021-09-15 10:31] VITALS: BP 120/79; PULSE 79
[2021-09-15 10:46] VITALS: BP 118/72; PULSE 71
[2021-09-15 11:01] VITALS: BP 112/75; PULSE 80
[2021-09-15 11:54] VITALS: BP 123/84; PULSE 90
--- NOTE | ~2021-09-22 | US_ITS ---
EXAMINATION: US OB follow up w BPP DATE: 09/15/2021 11:31 INDICATION: Multiple sclerosis. Assess amniotic fluid index and estimate weight during third tr imester . TECHNIQUE: Real-time pelvic ultrasound was performed. The interpreting radiologist was not present fo r the study. COMPARISON: None. FINDINGS: There is a single living fetus in vertex presentation. The placenta is posterior. heart rate i s 155 beats per minute (bpm). Normal amniotic fluid index of 10.4 cm (5th%-95%: 7.7-24.9 cm at 36 wee ks estimated gestational age). The following biometric data were obtained: BPD: 9.6 cm -> 39 weeks 1 days Head circumference: 34.0 cm -> 39 weeks 0 days Abdominal circumference: 33.1 cm -> 37 weeks 0 days Femur length: 7.4 cm -> 38 weeks 0 days These measurements are concordant. Head circumference to abdominal circumference ratio: 1.03 (normal range 0.89-1.06). Estimated weight: 3292 g (+/-) 494 g, 7lbs 4oz (+/-) 1 lbs. 1 oz Biophysical profile performed by the technologist: breathing (30 sec sustained breathing in 30 minutes): 2 out of 2 movement (3 gross body movements in 30 minutes: 2 out of 2 tone (one episode of lmszqdr-qrtigdnyo-ojczohl limb movement): 2 out of 2 Amniotic fluid pocket (2 cm): 2 out of 2 Total score: 8 out of 8 IMPRESSION: 1. Single living fetus in vertex presentation. 2. Normal amniotic fluid index of 10.4 cm. 3. Biophysical profile 8 out of 8. 4. Estimated weight is 81st percentile by Hadlock criteria when 10/08/2021 is used as the estim ated date of delivery (KANDI) based upon earliest ultrasound performed at this institution on 02/19/2021 . Please correlate with clinical information or earlier ultrasounds for most accurate KANDI. Reviewed, dictated and finalized at location A. IMPRESSION: 1. Single living fetus in vertex presentation. 2. Normal amniotic fluid index of 10.4 cm. 3. Biophysical profile 8 out of 8. 4. Estimated weight is 81st percentile by Hadlock criteria when 1 is used as the estimated date of delivery (KANDI) based upon earliest ultrasoun d performed at this institution on 02/19/2021. Please correlate with clinical in formation or earlier ultrasounds for most accurate KANDI.
--- NOTE | ~2021-09-22 | US_ITS ---
EXAMINATION: US OB BPP wo non-stress DATE: 09/22/2021 10:28 INDICATION: Multiple sclerosis, third trimester TECHNIQUE: Real-time pelvic ultrasound was performed. The interpreting radiologist was not present fo r the study. COMPARISON: 09/15/2021 FINDINGS: There is a single living fetus in vertex presentation. The placenta is posterior. heart rate is 148 beats per minute (bpm). Biophysical profile performed by the technologist: breathing (30 sec sustained breathing in 30 minutes): 2 out of 2 movement (3 gross body movements in 30 minutes): 2 out of 2 tone (one episode of kcweqpb-pfmmpwkwo-spceduf limb movement): 2 out of 2 Amniotic fluid pocket (2 cm): 2 out of 2 Total score: 8 out of 8 IMPRESSION: 1. Single living fetus in vertex presentation. 2. Biophysical profile 8 out of 8. Reviewed, dictated and finalized at location A.
[2021-09-22 10:30] VITALS: BP 119/81; PULSE 85
== END 2021-12-10 14:13 | disposition home or self-care (01) ==
LOC: ANHOBOP 09:35
PROVIDERS: PCP Family Medicine; Visit Provider Obstetrics & Gynecology
DX: O99.353 Diseases of the nervous system complicating pregnancy, third trimester (principal); G35 Multiple sclerosis; Z3A.36 36 weeks gestation of pregnancy; Z3A.37 37 weeks gestation of pregnancy
CPT/HCPCS: 59025; 76816; 76819

== ENCOUNTER 2021-09-25 10:06 | Inpatient (IN) | payer OTHER, SELFPAY ==
--- NOTE | 2021-09-08 12:02 | PC.NURSE ---
PATIENT STATES SHE IS HAVING A C/S ON 10/02/21--NOT ON SURGERY SCHEDULE AT TIME OF PREADMIT PATIENT INSTRUCTED NOTHING BY MOUTH THE NIGHT BEFORE SURGERY,BE IN OB 2 HOURS BEFORE SURGERY AND HAVE LABS DRAW THE DAY BEFORE SURGERY--PATIENT VERBALIZED HER UNDERSTANDING PATIENT GIVEN REQUISITION FOR PRE-OP LAB DRAW.
[2021-09-25] VITALS (60 sets, daily range): BP systolic 105–158; BP diastolic 28–120; PULSE 51–94; RESP 12–20; TEMP 36.1–36.8; O2SAT 76–100; BMI 35.0
--- NOTE | 2021-09-25 10:48 | WPDANESEPPF ---
Anes - Initial Pre Proc Eval Procedure: Operation Date: 10/02/21 12:00 Proposed Procedures p Repeat Section - Carrillo Reid MD Date/Time: 09/25/21 10:48 Surgeon: Carrillo Reid MD Pre Op Diagnosis: Contraction Patient Data Age: 30 Gender: F Height: Weight: Allergies Allergy/AdvReac Type Severity Reaction Status Date / Time adhesive tape Allergy Rash Verified 09/08/21 11:56 Home Medications Medication Instructions Recorded Confirmed Type PNV cmb#95-ferrous fumarate-FA 1 tablet PO DAILY 09/03/21 09/03/21 History [] Patient hx anesthesia problems: none Family hx anesthesia problems: none Results Review: All pre-operative results and documents have been reviewed as part of the pre-operative evaluation. [facility] Past Medical History Medical History Depressive disorder [place] (generalized anxiety disorder) Hyperemesis gravidarum MS (multiple sclerosis) Recurrent UTI Subchorionic hematoma in first trimester Supervision of normal IUP (intrauterine ) in multigravida Surgical History Surgical History Delivery by section 02/13/20091407 lbs.14 oz.MCesareanFull Term [facility] Delivery by section 08/29/2018137.35 lbs.8 oz.MRepeat CesareanFull [facility] Family History Family History (Updated 09/08/21 @ 11:57 by René Bauer RN) Father Cancer Mother Diabetes mellitus Hypertension Grandparent Heart disease Social History Social History Smoking status: Never smoker Alcohol intake: never Substance use: current Substance use type: marijuana Last use: ONE MONTH AGO 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 Gender identity (if verbalized by the patient): Female Sexual Orientation (if Verbalized by the Patient): Straight or Heterosexual Spiritual care concerns: No Agree to blood products: Yes Anes - Eval Final PreProcedure Day of Procedure 09/25/21 10:48 Patient weight: obese Heart: regular rate and rhythm Lungs: clear to auscultation and normal air movement Airway: Mallampati scale class II Neurological: alert and oriented Last oral intake: >/= 8 hours ASA classification: III Emergent: no Anesthetic plan: proceed Anesthesia type and monitoring: regional spinal and standard monitoring Results Review: All pre-operative results and documents have been reviewed as part of the pre-operative evaluation. Informed Consent: The patient's anesthetic plan and its attendant risks and benefits were discussed with the patient/family/POA. Questions were solicited and answers provided to the satisfaction of the patient/family/POA.
--- NOTE | 2021-09-25 11:10 | PM.IMHP ---
H&P: HPI History of Present Illness Date/Time: 09/25/21 11:10 30 yo F presents To [facility] labor and delivery in spontaneous labor paulino every 2 minutes with blood pressures 150/80 at 38w1d. she was scheduled for repeat on 10 02 21. Denies rupture membranes or vaginal bleeding has had active activity. She desires repeat I explained her condition procedure risk involved including but not limited to bleeding infection injury to bladder bowel baby pelvic vessels DVT pneumonia wound infections endometritis UTI the risk of anesthesia risk of hemorrhage she understands accepts and agrees to proceed she understands risk of her MS as well. complicated by hx of , severe hyperemesis gravidarum, depression, anxiety, cannabis abuse, and MS.She had severe hyperemesis gravidarum in the beginning of her requiring a PICC line for for 1 month's time. She had evaluation with noninvasive testing with negative genetics and a female gender identified. AFP screen negative. Ultrasound negative nominally screen. Glucose screen negative normal A1c. And GBS was negative. She is having a female infant named RACHEL, she will be bottle feeding, she will be having DrMarv Heart is the nascar driver SI HF, control IUD ParaGard, repeat under spinal anesthesia with Duramorph. Informed consent obtained. Chief Complaint: term spontaneous onset of labor previous section desires repeat section Review of Systems Review of Systems: All systems reviewed & are unremarkable except as noted in HPI and below Constitutional: Constitutional: Reports no additional constitutional complaints Eyes: Eyes: Reports no additional eye complaints ENT: Reports system reviewed and no additional complaints, except as documented Cardiovascular: Cardiovascular: Reports no additional cardiovascular complaints Respiratory: Respiratory: Reports no additional respiratory complaints Gastrointestinal: Gastrointestinal: Reports no additional gastrointestinal complaints Genitourinary: Genitourinary: Reports no additional female genitourinary complaints Musculoskeletal: Musculoskeletal: Reports no additional musculoskeletal complaints Integumentary/Breasts: Skin/Breast: Reports system reviewed and no additional complaints, except as docu Neurologic: Reports system reviewed and no additional complaints, except as documented Psychiatric: Psychiatric: Reports no additional psychiatric complaints Endocrine: Endocrine: Reports no additional endocrine complaints Hematologic/Lymphatic: Hematologic/Lymphatic: Reports no additional hematologic/lymphatic complaints Allergic/Immunologic: Allergic/Immunologic: Reports no additional allergic/immunologic complaints [facility] Past Medical History Medical History Depressive disorder [place] (generalized anxiety disorder) Hyperemesis gravidarum MS (multiple sclerosis) Recurrent UTI Subchorionic hematoma in first trimester Supervision of normal IUP (intrauterine ) in multigravida Surgical History Surgical History Delivery by section 02/13/20091407 lbs.14 oz.MCesareanFul Term [facility] Delivery by section 08/29/2018137.35 [facility] Family History Family History Father Cancer Mother Diabetes mellitus Hypertension Grandparent Heart disease Social History Social History Smoking status: Never smoker Alcohol intake: never Substance use: current Substance use type: marijuana Last use: ONE MONTH AGO 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
[2021-09-25] MEDS: LACTATED RINGERS 1,000 ML 125 ML IV CONT (11:11)
[2021-09-25 11:16] LABS: Hematocrit 32.3 % (37.0-47.0); Mean Corpuscular Hemoglobin 26.1 pg (26-34); Mean Corpuscular Volume 84.3 fl (80-100); Mean Platelet Volume 12.6 fl (7.4-10.4); Platelet Count Result 182 k/mm3 (150-375); Red Blood Count 3.83 M/mm3 (4.2-5.4); Red Cell Distribution Width 14.6 % (11.5-14.5); White Blood Count 6.2 K/mm3 (4.5-10.0)
--- NOTE | 2021-09-25 11:24 | WPDOBADMIT ---
Obstetrics - Admit Note Admission Note: record reviewed. No pertinent additions to the history and/or any subsequent changes in the physical findings that are not consistent with the expected course of the were found. Additions to the history and/or subsequent changes in the physical findings follow. None. 30 yo F presents To [facility] labor and delivery in spontaneous labor paulion every 2 minutes with blood pressures 150/80 at 38w1d. she was scheduled for repeat on 10 02 21. Denies rupture membranes or vaginal bleeding has had active activity. She desires repeat I explained her condition procedure risk involved including but not limited to bleeding infection injury to bladder bowel baby pelvic vessels DVT pneumonia wound infections endometritis UTI the risk of anesthesia risk of hemorrhage she understands accepts and agrees to proceed she understands risk of her MS as well. complicated by hx of , severe hyperemesis gravidarum, depression, anxiety, cannabis abuse, and MS.She had severe hyperemesis gravidarum in the beginning of her requiring a PICC line for for 1 month's time. She had evaluation with noninvasive testing with negative genetics and a female gender identified. AFP screen negative. Ultrasound negative nominally screen. Glucose screen negative normal A1c. And GBS was negative. She is having a female named RACHEL, she will be bottle feeding, she will be having Dr. Heart is the civil litigation attorney SI HF, control IUD ParaGard, repeat under spinal anesthesia with Duramorph. Informed consent obtained
[2021-09-25] MEDS: ceFAZolin 2 GM/D5W 50 ML 2 GM/50 ML BAG IVPB (11:33)
[2021-09-25 11:42] LABS: Uric Acid 4.4 mg/dL (2.5-7.5)
[2021-09-25 11:52] LABS: Alanine Aminotransferase 9 U/L (4-35); Albumin Level 3.7 g/dL (3.5-5.1); Alkaline Phosphatase 193 U/L (38-126); Anion Gap 9 mmol/L (8-16); Aspartate Amino Transferase 17 U/L (14-36); Bilirubin,Total 0.6 mg/dL (0.2-1.3); Blood Urea Nitrogen 4 mg/dL (7-17); Calcium 9.2 mg/dL (8.4-10.2); Carbon Dioxide 20 mmol/L (22-30); Chloride 107 mmol/L (98-107); Estimated Glomerular Filt Rate > 60; Glucose 76 mg/dL (65-110); Potassium 3.7 mmol/L (3.4-5.0); Sodium 136 mmol/L (137-145)
[2021-09-25 12:05] LABS: Anisocytosis 1+ (NORMAL); Platelet Estimate Adequate (Adequate)
[2021-09-25 12:06] LABS: Atypical Lymphocytes Present; Hypochromasia 1+ (NORMAL)
[2021-09-25] MEDS: KETOROLAC 30 MG/ML VIAL (*BKC) IV PUSH ×3 (12:06→23:56)
--- NOTE | 2021-09-25 12:25 | PM.OBPRVD ---
OB - Delivery Note Procedure Delivery date: 09/25/21 Procedure: Procedures Operation Date: 09/25/21 11:30 Actual Procedure Side Surgeon repeat low-transverse Section with delivery of viable female infant and placenta Carrillo Reid MD events: Previous Intrapartal events: Mild Preeclampsia Induction method: none Delivery monitor: external FHT and external uterine Route of delivery: ( repeat low-transverse) Episiotomy description: None Laceration Description: None Specimen: Yes ( placenta, cord blood, cord blood gases) Quantitative Blood Loss (ml): 530 Anesthesia type: Spinal ( Duramorph) Disposition: floor Complications: none Narrative: see detailed operative note [place] Date of : 09/25/21 Time of : 11:45 Weeks of gestation at delivery: 38 gender: Female (fallyn) Weight (pounds): 7 Weight (ounces): 3 presentation: vertex position: Left Occiput Anterior Placenta delivery description: Manual Removal and Normal Configuration cord vessel description: 3 Vessels and Nuchal Cord score one minute: 8 score five minutes: 9 Narrative: normal transition taken to the nursery in stable condition normal exam
--- NOTE | 2021-09-25 12:30 | W.PM.PROC2 ---
Procedure Note - Detailed Date of Procedure 09/25/21 Pre-op Diagnosis term Spontaneous onset of labor previous section x2 desires Repeat C/S Multiple sclerosis PIH generalized anxiety disorder Depressive disorder Recurrent UTI History of hyperemesis gravidarum Post-op Diagnosis same ( term delivered Spontaneous onset of labor previous section x2 desires Repeat C/S Multiple sclerosis PIH generalized anxiety disorder Depressive disorder Recurrent UTI History of hyperemesis gravidarum) Procedure Performed repeat low-transverse section with delivery of viable female infant and placenta Surgeon Carrillo Reid MD [employer] Splitter Machine Operator surgical coder x2 Anesthesia spinal ( Duramorph) Indications previous x2 desires repeat Spontaneous onset of labor at 38 weeks Findings viable female infant born at 11:45 a.m. on [birth year]21 scores 8 9 at 1 and 5 minutes weight 7 lb 3 oz normal exam taken to the nursery in stable condition normal transition Uterus tubes ovaries normal Placenta intact three-vessel cord normal the pathology nuchal cord x1 Counts correct Complications none Antibiotic prophylaxis Ancef 2 g VTE prevention SCDs To recovery room stable condition Description of Procedure informed consent obtained the patient was taken to the operating room placed in the sitting position and spinal anesthetic with Duramorph was administered. The patient was placed in the supine position and a Waters catheter was inserted. The abdomen was prepped and then draped in the usual sterile fashion. A time-out was performed and checking for adequate anesthesia confirmed. Elliptical incision was made around the old scar and the old scar was excised using electrocautery. Fascia was entered with electrocautery extended bilaterally undermined superior and inferior rectus muscle the midline peritoneum entered with electrocautery extended inferior superior. The lower uterine segment was fully developed. A transverse incision was made to the uterus clear fluid obtained upon rupture membranes. The uterine incision was extended bilaterally digitally. The vertex was then delivered via the abdominal incision without difficulty shoulders delivered without difficulty baby was placed on the maternal abdomen cord was clamped and then cut and the was handed to the nursery nurse in attendance. scores 8 and 9 at 1 and 5 minutes born at 11:45 a.m. on [birth year]21. Cord gas obtained cord blood obtained and the placenta was then delivered intact with three-vessel cord with the uterus paulino well as Pitocin was given intravenously and 10 units into the myometrium. The uterus was externalized blood clots membranes removed and in the intrauterine cavity. Following this the uterine incision was repaired in 2 layers with 0 Vicryl in a running interlocking fashion the 2nd being an imbricating stitch [id number]-[id number]-[id number] suture was required along the lateral margins for hemostasis. Blood clots removed from the cul-de-sac with irrigation and then the uterus was returned to the peritoneal cavity. Sponge needle and instrument counts were correct. The anterior peritoneum and rectus muscles reapproximated with 0 Vicryl suture in a running fashion. The fascia was closed with 2. Quill S RS system bilaterally. Mary's fascia reapproximated 3-0 plain running fashion. Insorb staple device was used to close the skin. Dermabond on the skin. Mepilex dressing over the incision. Patient was taken to the recovery room stable condition tolerated the procedure well baby taken to the nursery in stable condition. Implants none Estimated Blood Loss 530 IV Fluids 2,000 Urine Output 200 Drains No Packing No Pathology yes ( placenta, cord blood, cord blood gases) Complications None Condition stable Disposition floor
--- NOTE | 2021-09-25 13:17 | LDADM ---
This patient, Drake Verma, was admitted to Labor/Delivery/Recovery 120 on 09/25/21 at 10:06. Plans for labor, pain management and were discussed with patient. Patient/family oriented to hospital policies and general routines including ID bracelet, bed and alarms, visiting hours, pain management, procedures, bathroom and other care routines, personal items, smoking policy, room service/diet and guest tray routines, security routines, and visiting hours. Patient/Family are encouraged to report perceived risks to care and to ask questions if they do not understand what they are told or what they should do. See OBIX for further documentation.
[2021-09-25] MEDS: diphenhydrAMINE HCl INJ 50 MG/ML VIAL 25 MG IV PUSH (13:24)
[2021-09-25] MEDS: OXYTOCIN 30 UNITS/NS 500 ML 30 UNITS/500 ML BAG 125 UNITS IV CONT (13:25)
[2021-09-25] MEDS: MORPHINE SULFATE (*CRX) 2 MG/ML INJ IV PUSH ×2 (13:56→14:22)
--- NOTE | 2021-09-25 15:18 | OBPPTRN ---
Patient transferred to post room #285 via stretcher. Support person present. Oriented to unit, room, information board, rooming in, admission packet and security measures. Patient verbalizes understanding.
[2021-09-25] MEDS: DEXTROSE 5%/0.45% SOD CHL 1,000 ML 125 ML IV CONT (17:32)
[2021-09-25 18:02] LABS: Amphetamine Screen Urine Negative (Negative); Barbiturate Screen Urine Negative (Negative); Benzodiazepines Screen Urine Negative (Negative); Cannabinoid Screen Urine Positive (Negative); Cocaine Screen Urine Negative (Negative); Methadone Screen Urine Negative (Negative); Opiate Screen Urine Negative (Negative); Phencyclidine Screen Urine Negative (Negative)
[2021-09-25] MEDS: HYDROcodone/acetaminophen (*CRX) 5-325 MG TABLET 1 TAB PO (23:56)
[2021-09-26 04:09] LABS: Basophils Percent Auto 0.4 % (0.2-1.2); Eosinophils Percent Auto 0.4 % (0-4.4); Hematocrit 25.9 % (37.0-47.0); Hemoglobin 7.7 g/dL (12.0-15.0); Immature Granulocyte Absolute 0.05 K/mm3 (0.00-0.031); Immature Granulocyte Percent A 0.7 % (0-0.5); Lymphocytes Absolute Auto 0.78 K/mm3 (0.9-3.2); Lymphocytes Percent Auto 10.3 % (18.3-44.2); Mean Corpuscular HGB Conc 29.7 g/dl (32-36); Mean Corpuscular Hemoglobin 25.2 pg (26-34); Mean Corpuscular Volume 84.6 fl (80-100); Mean Platelet Volume 12.6 fl (7.4-10.4); Monocytes Absolute Auto 0.6 K/mm3 (0.1-0.6); Monocytes Percent Auto 7.6 % (2.6-8.5); Neutrophils Absolute Auto 6.1 K/mm3 (1.3-6.7); Neutrophils Percent Auto 80.6 % (45.5-73.1); Platelet Count Result 149 k/mm3 (150-375); Red Blood Count 3.06 M/mm3 (4.2-5.4); Red Cell Distribution Width 14.3 % (11.5-14.5); White Blood Count 7.6 K/mm3 (4.5-10.0)
[2021-09-26 04:23] VITALS: BP 120/71; PULSE 75; RESP 16; TEMP 36.4
[2021-09-26] MEDS: HYDROcodone/acetaminophen (*CRX) 10-325 MG TABLET 1 TAB PO ×4 (06:00→20:53)
[2021-09-26] MEDS: IBUPROFEN 600 MG TABLET PO ×3 (06:01→20:53)
--- NOTE | 2021-09-26 08:43 | PM.OBPNVD ---
OB - PN: Subj Subjective Date/time seen: 09/26/21 08:43 Patient is out of bed this morning tolerating regular diet and has been to the bathroom once. Pain has been very well controlled she strongly desires to be discharged tomorrow. OB - PN: Obj Data Labs CBC & Chem 7: 09/26/21 03:56 09/25/21 10:57 Labs: Laboratory Results - last 24 hr 09/25/21 09/25/21 09/25/21 10:57 10:57 10:57 WBC 6.2 RBC 3.83 L Hgb 10.0 L Hct 32.3 L MCV 84.3 MCH 26.1 MCHC 31.0 L RDW 14.6 H Plt Count 182 MPV 12.6 H Immature Gran % (Auto) Not Reportable Neut % (Auto) Not Reportable Lymph % (Auto) Not Reportable [place] % (Auto) Not Reportable Eos % (Auto) Not Reportable Baso % (Auto) Not Reportable Lymph # (Auto) Not Reportable [place] # (Auto) Not Reportable Eos # (Auto) Not Reportable Baso # (Auto) Not Reportable Abs Immat Gran (auto) Not Reportable Absolute Neuts (auto) Not Reportable Absolute Nucleated RBC Not Reportable Nucleated RBC % Not Reportable Atypical Lymphocytes Present Platelet Estimate Adequate Hypochromasia 1+ Anisocytosis 1+ Sodium 136 L Potassium 3.7 Chloride 107 Carbon Dioxide 20 L Anion Gap 9 BUN 4 L Creatinine 0.60 L Estim Creat Clear Calc Not Reportable Estimated GFR > 60 Glucose 76 Uric Acid Calcium 9.2 Total Bilirubin 0.6 AST 17 ALT 9 Alkaline Phosphatase 193 H Total Protein 7.0 Albumin 3.7 Urine Opiates Screen Urine Methadone Screen Ur Barbiturates Screen Ur Phencyclidine Scrn Ur Amphetamine Screen U Benzodiazepines Scrn Urine Cocaine Screen U Cannabinoids Screen Blood Type B Positive Antibody Screen Negative 09/25/21 09/25/21 09/26/21 10:57 12:23 03:56 WBC 7.6 RBC 3.06 L Hgb 7.7 L Hct 25.9 L MCV 84.6 MCH 25.2 L MCHC 29.7 L RDW 14.3 Plt Count 149 L MPV 12.6 H Immature Gran % (Auto) 0.7 H Neut % (Auto) 80.6 H Lymph % (Auto) 10.3 L [place] % (Auto) 7.6 Eos % (Auto) 0.4 Baso % (Auto) 0.4 Lymph # (Auto) 0.78 L [place] # (Auto) 0.6 Eos # (Auto) 0.0 Baso # (Auto) 0.0 Abs Immat Gran (auto) 0.05 H Absolute Neuts (auto) 6.1 Absolute Nucleated RBC 0.0 Nucleated RBC % 0.0 Atypical Lymphocytes Platelet Estimate Hypochromasia Anisocytosis Sodium Potassium Chloride Carbon Dioxide Anion Gap BUN Creatinine Estim Creat Clear Calc Estimated GFR Glucose Uric Acid 4.4 Calcium Total Bilirubin AST ALT Alkaline Phosphatase Total Protein Albumin Urine Opiates Screen Negative Urine Methadone Screen Negative Ur Barbiturates Screen Negative Ur Phencyclidine Scrn Negative Ur Amphetamine Screen Negative U Benzodiazepines Scrn Negative Urine Cocaine Screen Negative U Cannabinoids Screen Positive A Blood Type Antibody Screen OB - PN A/P Assessment and Plan (1) Term delivered: Code(s): O80 - Encounter for full-term uncomplicated delivery Status: Acute Assessment and Plan: If doing well will discharge home tomorrow per patient request. With standard follow-up with Dr. Reid. Time Spent With Patient Time: Total time spent is greater than 50% in coordination of care (as documented) at patient's floor/unit and/or counseling patient: Exam GI: Inspection: incision (Healing well) Auscultation: normal bowel sounds
--- NOTE | 2021-09-26 08:45 | PM.OBDSVD ---
DS: Admitting Diagnosis Discharge Date 09/27/2021 Admitting Diagnosis OB - DS: Summary OB Procedures : None OB Procedures Intrapartum: OB Procedures: : None Peripartum Data Procedures: Procedures Operation Date: 09/25/21 11:30 Actual Procedure Side Surgeon p Section Carrillo Reid MD Time Spent with Patient Time attestation: Total time spent providing and/or coordinating discharge services: DS: Data Data Completed and Pending Pending studies at discharge: Pending at discharge 09/25/21 11:46 Surgical [PTH] Routine Labs on day of discharge: Labs from last 24 hours 09/26/21 09/25/21 09/25/21 03:56 12:23 10:57 WBC 7.6 RBC 3.06 L Hgb 7.7 L Hct 25.9 L MCV 84.6 MCH 25.2 L MCHC 29.7 L RDW 14.3 Plt Count 149 L MPV 12.6 H Immature Gran % (Auto) 0.7 H Neut % (Auto) 80.6 H Lymph % (Auto) 10.3 L Patrick % (Auto) 7.6 Eos % (Auto) 0.4 Baso % (Auto) 0.4 Lymph # (Auto) 0.78 L Patrick # (Auto) 0.6 Eos # (Auto) 0.0 Baso # (Auto) 0.0 Abs Immat Gran (auto) 0.05 H Absolute Neuts (auto) 6.1 Absolute Nucleated RBC 0.0 Nucleated RBC % 0.0 Atypical Lymphocytes Platelet Estimate Hypochromasia Anisocytosis Sodium Potassium Chloride Carbon Dioxide Anion Gap BUN Creatinine Estim Creat Clear Calc Estimated GFR Glucose Uric Acid 4.4 Calcium Total Bilirubin AST ALT Alkaline Phosphatase Total Protein Albumin Urine Opiates Screen Negative Urine Methadone Screen Negative Ur Barbiturates Screen Negative Ur Phencyclidine Scrn Negative Ur Amphetamine Screen Negative U Benzodiazepines Scrn Negative Urine Cocaine Screen Negative U Cannabinoids Screen Positive A RPR Blood Type Antibody Screen 09/25/21 09/25/21 09/25/21 10:57 10:57 10:57 WBC RBC Hgb Hct MCV MCH MCHC RDW Plt Count MPV Immature Gran % (Auto) Neut % (Auto) Lymph % (Auto) Patrick % (Auto) Eos % (Auto) Baso % (Auto) Lymph # (Auto) Patrick # (Auto) Eos # (Auto) Baso # (Auto) Abs Immat Gran (auto) Absolute Neuts (auto) Absolute Nucleated RBC Nucleated RBC % Atypical Lymphocytes Platelet Estimate Hypochromasia Anisocytosis Sodium 136 L Potassium 3.7 Chloride 107 Carbon Dioxide 20 L Anion Gap 9 BUN 4 L Creatinine 0.60 L Estim Creat Clear Calc Not Reportable Estimated GFR > 60 Glucose 76 Uric Acid Calcium 9.2 Total Bilirubin 0.6 AST 17 ALT 9 Alkaline Phosphatase 193 H Total Protein 7.0 Albumin 3.7 Urine Opiates Screen Urine Methadone Screen Ur Barbiturates Screen Ur Phencyclidine Scrn Ur Amphetamine Screen U Benzodiazepines Scrn Urine Cocaine Screen U Cannabinoids Screen RPR Pending Blood Type B Positive Antibody Screen Negative 09/25/21 10:57 WBC 6.2 RBC 3.83 L Hgb 10.0 L Hct 32.3 L MCV 84.3 MCH 26.1 MCHC 31.0 L RDW 14.6 H Plt Count 182 MPV 12.6 H Immature Gran % (Auto) Not Reportable Neut % (Auto) Not Reportable Lymph % (Auto) Not Reportable Patrick % (Auto) Not Reportable Eos % (Auto) Not Reportable Baso % (Auto) Not Reportable Lymph # (Auto) Not Reportable Patrick # (Auto) Not Reportable Eos # (Auto) Not Reportable Baso # (Auto) Not Reportable Abs Immat Gran (auto) Not Reportable Absolute Neuts (auto) Not Reportable Absolute Nucleated RBC Not Reportable Nucleated RBC % Not Reportable Atypical Lymphocytes Present Platelet Estimate Adequate Hypochromasia 1+ Anisocytosis 1+ Sodium Potassium Chloride Carbon Dioxide Anion Gap BUN Creatinine Estim Creat Clear Calc Estimated GFR Glucose Uric Acid Calcium Total Bilirubin AST ALT Alkaline Phosphatase Total Protein Albumin Urin
[2021-09-26] MEDS: POLYSACCHARIDE IRON COMPLEX 150 MG CAPSULE PO ×2 (09:27→17:11)
[2021-09-26] MEDS: MULTIVIT/MIN/PREN/FOL AC/IRON TABLET 1 TAB PO (09:27)
[2021-09-26] MEDS: DOCUSATE SODIUM 100 MG CAPSULE PO ×2 (09:27→17:11)
[2021-09-26 09:30] VITALS: BP 121/69; PULSE 73; RESP 20; TEMP 36.6
--- NOTE | 2021-09-26 12:00 | PCCCNOTE ---
Addendum entered by MOE Butler 09/26/21 13:10: 1310: Recvd email from [facility]: The information you provided did not meet one of the criteria for an investigation (eligible victim, eligible perpetrator, eligible event, or jurisdiction). The information as been documented and will be kept on file. Should you learn of further information or have additional concerns, please feel free to contact us. Original Note: Met with pt. due to THC+. Pt. reports using for her MS flare ups. Baby was also THC+ on UDS. Baby's meconium was not tested. Pt. reports this is her third baby and her, , FOB Fernando and two sons will live in [place]. Pt. states her mother and sisters are very supportive. Pt. states she has everything necessary for new baby. Pt. already established with [facility] [place]. Pt. denies prior involvement with DCFS. resources provided. [facility] Intake #[id number]. KETAN joe.
--- NOTE | 2021-09-26 13:07 | WPDANLDPN2 ---
Anes-Prog Note L&D Date/Time: 09/26/21 13:07 Comfortable throughout: section Neuraxial method: spinal Epidural/Spinal procedure site: clean & non-tender Neuro status: Neuro function grossly intact. Cardiovascular status: normal Respiratory status: normal Airway patency: baseline Mental status: baseline Post-Op hydration status: normal Vital Signs: Last Vital Signs Temp 36.4 C 09/26/21 04:23 Pulse 75 09/26/21 04:23 Resp 16 09/26/21 04:23 BP 120/71 09/26/21 04:23 Pulse Ox 100 09/25/21 14:58 Pain score (VAS): 12/07 I/O: Intake & Output 09/25/21 09/26/21 09/26/21 23:59 07:59 15:59 Intake Total 50 1000 Output Total 725 650 Balance -675 350 Post-procedural complaints: none Patient feedback: Patient satisfied with anesthetic care.
--- NOTE | 2021-09-26 13:07 | WPDANLDNPN2 ---
Anes-Prog Note L&D-Neuraxial Date/Time: 09/26/21 13:07 Neuraxial medications: intrathecal PF morphine Opiod-related complaints: none Patient feedback: Patient satisfied with post-operative pain management.
[2021-09-26] MEDS: HYDROcodone/acetaminophen (*CRX) 5-325 MG TABLET 1 TAB PO (13:29)
[2021-09-26 15:38] LABS: Rapid Plasma Reagin Non-Reactive (NonReactive)
[2021-09-26 18:30] VITALS: BP 116/74; PULSE 64; RESP 16; TEMP 36.8; O2SAT 100
[2021-09-26] MEDS: SIMETHICONE 80 MG TAB.CHEW PO (20:53)
[2021-09-27] MEDS: HYDROcodone/acetaminophen (*CRX) 10-325 MG TABLET 1 TAB PO (05:44)
[2021-09-27] MEDS: IBUPROFEN 600 MG TABLET PO (05:44)
[2021-09-27] MEDS: POLYSACCHARIDE IRON COMPLEX 150 MG CAPSULE PO (07:38)
[2021-09-27] MEDS: DOCUSATE SODIUM 100 MG CAPSULE PO (07:38)
[2021-09-27] MEDS: MULTIVIT/MIN/PREN/FOL AC/IRON TABLET 1 TAB PO (07:38)
[2021-09-27 08:15] VITALS: BP 133/70; PULSE 66; RESP 16; TEMP 36.4; O2SAT 100
--- NOTE | 2021-09-27 09:35 | PC.NURSE ---
Patient instructed on viewing the discharge video Mother & Baby Care, The First Two Weeks . Patient was given the opportunity and encouraged to ask questions. Patient verbalized understanding of information shared and has been given the mother/baby guide for home reference.
--- NOTE | 2021-09-28 12:40 | PM.OBDSVD ---
DS: Admitting Diagnosis Discharge Date 09/27/2021 Admitting Diagnosis term Spontaneous onset of labor previous section x2 desires Repeat C/S Multiple sclerosis PIH generalized anxiety disorder Depressive disorder Recurrent UTI History of hyperemesis gravidarum DS: Discharge Diagnosis Discharge Diagnosis (1) Term delivered: Code(s): O80 - Encounter for full-term uncomplicated delivery Status: Acute (2) Spontaneous onset of labor: Status: Acute (3) Delivery by section: Status: Acute (4) MS (multiple sclerosis): Code(s): G35 - Multiple sclerosis Status: Acute (5) [place] (generalized anxiety disorder): Code(s): F41.1 - Generalized anxiety disorder Status: Acute (6) Depressive disorder: Code(s): F32.9 - Major depressive disorder, single episode, unspecified Status: Acute (7) Recurrent UTI: Code(s): N39.0 - Urinary tract infection, site not specified Status: Acute OB - DS: Summary Hospital Course Time spent discussing smoking cessation with patient: 3 to 10 minutes OB Procedures : NST, Ultrasound and Other ( PICC line for hyperemesis gravidarum) OB Procedures Intrapartum: ( repeat) low cervical, transverse OB Procedures: : None Peripartum Data Infant Delivery Method: Section ( repeat low-transverse) Laceration Description: None Episiotomy description: None Procedures: Procedures Operation Date: 09/25/21 11:30 Actual Procedure Side Surgeon repeat low-transverse Section with delivery of viable female infant and placenta Carrillo Reid MD complications: none 1: Gender: Female (fallyn) Disposition of : home Status at Discharge Cognitive/behavioral status at discharge: normal Functional status at discharge: independent ambulation Overall status at discharge: patient is back to baseline Time Spent with Patient Time attestation: Total time spent providing and/or coordinating discharge services: Time spent: Less than 30 minutes Exam Const: General: cooperative, healthy appearing, comfortable, no acute distress, well developed, alert, awake and Physically active Nutritional Appearance: average body habitus Orientation/consciousness: patient oriented x3 Limitations: no limitations HENMT: Head: normal to inspection Eyes: General: appearance normal, both eyes and all related structures Neck: Neck: normal visual inspection and full ROM Chest: Chest palpation & inspection: normal inspection of the chest Resp: Effort & Inspection: normal respiratory effort Auscultation: clear to auscultation bilaterally Cardio: Rate: regular rate Rhythm: regular rhythm GI: Inspection: normal to inspection and incision ( dressing dry and intact) GI Palp: Yes Soft to palpation Percussion: Yes normal to percussion Auscultation: normal bowel sounds : External Female Exam: normal external appearance Bimanual exam- vagina & uterus: non-tender Back/Spine/Pelvis: Back: no CVA tenderness Skin: General skin exam: normal color Neuro: General: patient oriented x3, gait normal, tone normal, moves all extremities and Normal light touch and pain sensation Extrem: General: normal to inspection and full ROM Psych: Appearance: grossly normal Mental Status: mental status grossly normal Speech and movement: Normal speech and movement present Affect: normal affect Attitude: cooperative Thought process: Normal thought process present Thought content: Yes Normal thought content present Insight: Good insight present (Psych) Judgement: Good judgement present (Psych) DS: Data Data Completed and Pending Pending studies at discharge: Pending at discharge 09/25/21 11:46 Surgical [PTH] Routine Labs on day of discharge: Labs from last 24 hours 09/25/21 09/25/21 09/25/21 10:57 10:57 10:57 WBC RBC Hgb Hct
== END 2021-09-27 10:49 | disposition home or self-care (01) | DRG 540 ==
LOC: ANHLDR 12:46 → ANHOB2 14:52
PROVIDERS: Admitting Provider Obstetrics & Gynecology; PCP Family Medicine; Visit Provider Obstetrics & Gynecology
PROC: 10D00Z1 Extraction of Products of Conception, Low, Open Approach (ICD-10-PCS; CPT 59514; principal; 2021-09-25 12:00)
DX: O34.211 Maternal care for low transverse scar from previous cesarean delivery (principal); Z37.0 Single live birth; Z3A.38 38 weeks gestation of pregnancy; O99.354 Diseases of the nervous system complicating childbirth; G35 Multiple sclerosis; O99.344 Other mental disorders complicating childbirth; F41.1 Generalized anxiety disorder; F32.A Depression, unspecified; O99.324 Drug use complicating childbirth; F12.90 Cannabis use, unspecified, uncomplicated; O14.94 Unspecified pre-eclampsia, complicating childbirth
CPT/HCPCS: 36415; 80053; 80307; 84550; 85025; 86592; 86850; 86900; 86901; 88307; A9270; J0131; J0690; J1200; J1885; J2270; J2274; J2405; J2590; J7120

== ENCOUNTER 2022-02-12 13:17 | Outpatient (CLI) | payer OTHER, SELFPAY ==
--- NOTE | ~2022-02-12 | US_ITS ---
EXAMINATION: US pelvic complete w TV DATE: 02/12/2022 14:20 INDICATION: Evaluate IUD position Comparison:No prior studies for comparison. TECHNIQUE: Multiple transabdominal and endovaginal sonographic images of the pelvis performed. FINDINGS: The uterus measures 8.9 x 6.3 x 3.6 cm. The endometrial complex measures 11 mm. The IUD is not visualized. The right ovary measures 5.7 x 4.8 x 2.9 cm and the left ovary measures 3.4 x 1.9 x 1.9 cm. There is a right ovarian cyst measuring 3.5 cm. There are small follicles in each ovary. Normal doppler signal in both ovaries. There is no free fluid in the pelvis. There are no abnormal masses seen on either side. IMPRESSION: 1. Right ovarian cyst measuring 3.5 cm. 2: IUD not visualized. Reviewed, dictated and finalized at location B.
== END 2022-02-12 13:18 | disposition home or self-care (01) ==
LOC: ANHIMG 13:19
PROVIDERS: PCP Family Medicine; Visit Provider Family Medicine
DX: T83.89XD Other specified complication of genitourinary prosthetic devices, implants and grafts, subsequent encounter (principal); N83.201 Unspecified ovarian cyst, right side
CPT/HCPCS: 76830; 76856

== ENCOUNTER 2022-02-15 12:10 | Outpatient (CLI) | payer OTHER, SELFPAY ==
--- NOTE | ~2022-02-15 | XR_ITS ---
EXAMINATION: XR abdomen/kub 1V INDICATION: Malposition of intrauterine contraceptive device TECHNIQUE: Supine views of the abdomen were obtained on 2 radiographs. COMPARISON: None FINDINGS: The IUD is positioned superolaterally in the left pelvis. The stem of the IUD points supero laterally. The bowel gas pattern is normal. There are no dilated loops of bowel. Phleboliths are note d in the pelvis. IMPRESSION: 1. IUD positioned superolaterally in the left pelvis with orientation consistent with displacement fr om expected position. Consider further evaluation by CT with contrast CT to further assess position. Reviewed, dictated and finalized at location B. IMPRESSION: 1. IUD positioned superolaterally in the left pelvis with orientation consisten t with displacement from expected position. Consider further evaluation by CT w ith contrast CT to further assess position.
== END 2022-02-15 12:11 | disposition home or self-care (01) ==
LOC: ANHIMG 12:14
PROVIDERS: PCP Family Medicine; Visit Provider Family Medicine
DX: T83.32XA Displacement of intrauterine contraceptive device, initial encounter (principal)
CPT/HCPCS: 74018

== ENCOUNTER 2024-02-05 08:32 | Outpatient (CLI) | payer OTHER, SELFPAY ==
--- NOTE | ~2024-02-05 | MR_ITS ---
EXAMINATION: MR cervical spine wo/w con DATE: 02/05/2024 10:12 INDICATION: Multiple sclerosis. TECHNIQUE: Magnetic resonance imaging (MRI) of the cervical spine was performed without and with 15 m L MultiHance intravenous contrast. COMPARISON: None FINDINGS: There is mild kyphosis of cervical spine. There is 6 degrees dextrocurvature of cervicothor acic spine. Vertebral body heights and intervertebral disc heights are normal. There are lesions of i ncreased T2-weighted signal intensity in the medulla. There are multiple ill-defined lesions of incre ased T2-weighted signal intensity in the cervical spinal cord. No abnormal contrast enhancement. The following disc levels are specifically discussed: C2-C3: The disc does not extend beyond the endplate margin. There is no uncovertebral joint osteoarth ritis. There is mild bilateral facet joint osteoarthritis. There is no neural foraminal stenosis. The re is no central canal stenosis. C3-C4: The disc does not extend beyond the endplate margin. There is no uncovertebral joint osteoarth ritis. There is mild bilateral facet joint osteoarthritis. There is no neural foraminal stenosis. The re is no central canal stenosis. C4-C5: The disc does not extend beyond the endplate margin. There is no uncovertebral joint osteoarth ritis. There is mild bilateral facet joint osteoarthritis. There is no neural foraminal stenosis. The re is no central canal stenosis. C5-C6: The disc does not extend beyond the endplate margin. There is no uncovertebral joint osteoarth ritis. There is mild right facet joint osteoarthritis. There is no neural foraminal stenosis. There i s no central canal stenosis. C6-C7: The disc does not extend beyond the endplate margin. There is no uncovertebral joint osteoarth ritis. There is mild right facet joint osteoarthritis. There is no neural foraminal stenosis. There i s no central canal stenosis. C7-T1: The disc does not extend beyond the endplate margin. There is no uncovertebral joint osteoarth ritis. There is mild bilateral facet joint osteoarthritis. There is no neural foraminal stenosis. The re is no central canal stenosis. IMPRESSION: 1. Spinal cord lesions, consistent with multiple sclerosis. 2. Mild cervical facet joint osteoarthritis. Reviewed, dictated and finalized at location E.
--- NOTE | ~2024-02-05 | MR_ITS ---
EXAMINATION: MR brain/brain stem wo/w con DATE: 02/05/2024 10:12 INDICATION: Multiple sclerosis. TECHNIQUE: Magnetic resonance imaging (MRI) of the brain and brainstem was performed without and with 15 mL MultiHance intravenous contrast. COMPARISON: None. FINDINGS: There are greater than 20 total lesions of increased T2-weighted signal intensity in the br ain. Of these lesions, approximately several are periventricular, cerebral are juxtacortical, and mul tiple are infratentorial. 3 of the lesions enhance. There is no intracranial hemorrhage or acute isch emic infarct. There is mild mucosal thickening in the ethmoid sinuses. The mastoid air cells are norm al. The orbits are normal. IMPRESSION: 1. Brain lesions, consistent with multiple sclerosis. Reviewed, dictated and finalized at location E.
--- NOTE | ~2024-02-05 | MR_ITS ---
EXAMINATION: MR thoracic spine wo/w con DATE: 02/05/2024 10:12 INDICATION: Multiple sclerosis. TECHNIQUE: Magnetic resonance imaging (MRI) of the thoracic spine was performed without and with 15 m L MultiHance intravenous contrast. COMPARISON: None FINDINGS: There is 6 degrees dextrocurvature of cervical thoracic spine. Vertebral body heights and i ntervertebral disc heights are normal. The discs do not extend beyond the endplate margins. There is multilevel mild facet joint osteoarthritis. No neural foraminal stenosis or central canal stenosis. T here are multiple ill-defined lesions of increased T2-weighted signal intensity in the thoracic spina l cord. No abnormal contrast enhancement. IMPRESSION: 1. Thoracic spinal cord lesions, consistent with multiple sclerosis. Reviewed, dictated and finalized at location E.
== END 2024-02-05 08:33 | disposition home or self-care (01) ==
PROVIDERS: Visit Provider Family Medicine
DX: G35 Multiple sclerosis (principal); M50.30 Other cervical disc degeneration, unspecified cervical region
CPT/HCPCS: 70553; 72156; 72157; A9577